=== PATIENT | male | born 1965 | race Caucasian/White ===

== ENCOUNTER 2019-03-02 11:52 | Emergency (ER) | payer MEDICARE, MEDICAID ==
[~2019-03-02] VITALS: Ht 182.9 cm; Wt 79.3 kg
[~2019-03-02 11:52] MED LIST: CLIN-90 PO; DOXY100T2 PO
[2019-03-02] MEDS ORDERED: MUPI22OI30 TOP (14:24)
[2019-03-02] MEDS ORDERED: IBUP-1984 PO (14:24)
[2019-03-02] MEDS ORDERED: DOXY100C43 PO (14:24)
[2019-03-02] MEDS ORDERED: CEPH250T PO (14:24)
[2019-03-02 14:26] VITALS: BP 124/71
== END 2019-03-02 14:38 | disposition home or self-care (01) ==
LOC: ER 11:52
DX: L01.00 Impetigo, unspecified (principal); B95.61 Methicillin susceptible Staphylococcus aureus infection as the cause of diseases classified elsewhere; G89.29 Other chronic pain; R00.0 Tachycardia, unspecified; Z88.0 Allergy status to penicillin; Z88.8 Allergy status to other drugs, medicaments and biological substances; Z79.2 Long term (current) use of antibiotics; Z79.1 Long term (current) use of non-steroidal anti-inflammatories (NSAID)
CPT/HCPCS: 99284